=== PATIENT | female | born 1955 | race Caucasian/White ===

== ENCOUNTER 2017-12-06 11:51 | Emergency (ER) | payer OTHER ==
[~2017-12-06] VITALS: Ht 160 cm; Wt 81.6 kg
[2017-12-06] MEDS ORDERED: DILTIAZEM 60 MG (12:37)
[2017-12-06] MEDS ORDERED: ORPHENADRINE C100 MG (12:38)
[2017-12-06] MEDS ORDERED: CRESTOR5 MG (12:39)
[2017-12-06] MEDS ORDERED: CATAFLAN (12:39)
== END 2017-12-06 19:45 | disposition home or self-care (01) ==
LOC: ER 11:51
DX: M75.52 Bursitis of left shoulder (principal)